=== PATIENT | female | born 1965 | race Hispanic/Latino ===

== ENCOUNTER → 2024-09-13 | Outpatient (CLI) | payer BC ==
--- NOTE | 2024-09-13 10:20 | HMCIMG ---
SCREENING MAMMOGRAM REASON: Annual Exam COMPARISON: none TECHNIQUE: CC and MLO views of the bilateral breasts were performed.CAD was performed as well. FINDINGS: Parenchymal density: There are scattered areas of fibroglandular density. There is a 2.6 x 3.2 cm parenchymal density upper outer quadrant of the right breast. This appears most consistent with asymmetric parenchyma, but there is no corresponding parenchymal density on the left. Poorly defined mass could cause this appearance as well. Spot compression views and ultrasound are recommended for further evaluation. Remaining breast parenchyma appears unremarkable. There are no pathologic appearing calcifications. There is no evidence of architectural distortion or skin thickening. IMPRESSION: 2.6 x 3.2 cm density upper outer quadrant right breast, this could be asymmetric parenchyma but could also be a poorly defined mass. 2. Focal spot compression views and ultrasound are recommended for further evaluation. The patient was entered into a reminder system with a target due date for their next mammogram. BI-RADS CATEGORY 0: INCOMPLETE. NEED ADDITIONAL IMAGING EVALUATION Recommend monthly self breast exam as well as annual clinical examination. A negative x-ray should not delay biopsy if a dominant or clinically suspicious mass is present, since 8-10% of cancers are not identified by mammography. Dense breasts particularly, may obscure an underlying neoplasm. Some of these may be detected clinically and therefore, clinical examination is an essential part of breast evaluation.
== END | disposition home or self-care (01) ==
LOC: RAH 09:00
PROVIDERS: ATTEND Obstetrics & Gynecology
DX: Z12.31 Encounter for screening mammogram for malignant neoplasm of breast (principal); R92.323 Mammographic fibroglandular density, bilateral breasts; N63.11 Unspecified lump in the right breast, upper outer quadrant
CPT/HCPCS: 77067

== ENCOUNTER → 2024-09-29 | Outpatient (CLI) | payer BC ==
--- NOTE | 2024-10-04 10:23 | HMCIMG ---
PROCEDURE: MAMMO DX UNILATERAL RIGHT, US BREAST COMPLETE UNILATERAL HISTORY: Abnormal mammogram COMPARISON: 09/13/2024 TECHNIQUE: Right breast digital diagnostic mammogram with CAD was performed. No additional views were obtained. Right breast ultrasound study was performed. FINDINGS: There are scattered areas of fibroglandular density. Asymmetric breast density is seen in the upper outer quadrant of the right breast. Ultrasound of right breast shows right breast cysts at 8:00 measuring 4 x 3 x 4 mm. Dense fibroglandular tissue is seen in the upper outer quadrant of the right breast corresponding to mammographic findings. Six-month follow-up study is recommended due to asymmetric breast density of right breast. There is no other evidence of a dominant mass, or suspicious microcalcification. There is no evidence of nipple retraction or skin thickening. IMPRESSION: 1. Asymmetric breast density is seen in the upper outer quadrant of the right breast. Ultrasound of right breast shows right breast cysts at 8:00 measuring 4 x 3 x 4 mm. Dense fibroglandular tissue is seen in the upper outer quadrant of the right breast corresponding to mammographic findings. Six-month follow-up study is recommended due to asymmetric breast density of right breast. BI-RADS: CATEGORY 3: PROBABLE BENIGN-SHORT INTERVAL FOLLOWUP SUGGESTED Recommend monthly self breast exam as well as annual clinical examination. A negative x-ray should not delay biopsy if a dominant or clinically suspicious mass is present, since 8-10% of cancers are not identified by mammography. Dense breasts particularly, may obscure an underlying neoplasm. Some of these may be detected clinically and therefore, clinical examination is an essential part of breast evaluation.
== END | disposition home or self-care (01) ==
LOC: RAH 13:28
PROVIDERS: ATTEND Obstetrics & Gynecology
DX: R92.8 Other abnormal and inconclusive findings on diagnostic imaging of breast (principal)
CPT/HCPCS: 76641; 77065